=== PATIENT | male | born 1955 | race Hispanic/Latino ===

== ENCOUNTER 2024-04-05 18:04 | Emergency (ER) | payer SELFPAY ==
--- NOTE | 2024-04-05 19:41 | RAD REPORT ---
EXAMINATION: TWO VIEW CHEST XR CLINICAL INDICATION: Cough;SOB TECHNIQUE: 2 views of the chest was performed. COMPARISON: No prior exam. FINDINGS: Extensive fibrotic changes are present with reduced lung volumes. Superimposed bilateral interstitial lung opacities probably represent infection. The heart is normal in size. No displaced fractures evident.
[2024-04-05] MEDS ORDERED: ASPIRIN 81 MG CHEWABLE TABLET ONE (20:18)
[2024-04-05] MEDS ORDERED: LEVALBUTEROL 1.25 MG/3 ML NEB ONE (20:18)
[2024-04-05] MEDS ORDERED: NA CHLORIDE 0.9% 1,000 ML ONE (20:18)
[2024-04-05] MEDS ORDERED: IPRATROPIUM BROM 0.5MG/2.5ML ONE (20:18)
[2024-04-05 20:48] LABS: Absolute Basophils 0.1 K/uL (0-0.5); Absolute Eosinophils 0.2 K/uL (0-0.5); Absolute Lymphocytes (CBC) 1.5 K/uL (0.7-4.9); Absolute Monocytes 0.5 K/uL (0.1-1.3); Absolute Neutrophil 8.1 K/uL (1.8-8.0); Basophils % 0.5 % (0-1.3); Eosinophils % 2.2 % (0-4.4); Hematocrit 42.2 % (39.6-49.0); Hemoglobin 14.3 g/dL (13.6-17.9); Lymphocytes % 14.4 % (15.3-44.8); MCH 28.2 pg (27.0-35.0); MCHC 33.9 g/dL (32.0-36.0); MCV 83.3 fL (80-100); Monocytes % 4.4 % (3.3-12.3); Neutrophils % 78.5 % (41.7-73.7); Platelets 218 thou/uL (152-406); RBC Red Blood Cell Count 5.07 M/uL (4.33-5.43); Red Cell Distribution Width 14.3 % (12.1-15.2)
[2024-04-05 21:03] LABS: Albumin 3.6 g/dL (3.4-5.0); Albumin/Globulin Ratio 0.8 (1.1-1.8); Anion Gap 9.3 mEq/L (5.0-15.0); Bilirubin Direct 0.2 mg/dL (0-0.2); Bilirubin Indirect, Calculated 0.3 mg/dL (0.2-0.8); Bilirubin Total 0.5 mg/dL (0.2-1.0); Globulin 4.6 g/dL (2.3-3.5); Magnesium 1.8 mg/dL (1.6-2.4); Potassium 4.3 mEq/L (3.5-5.1); Protein, Total 8.2 g/dL (6.4-8.2); Troponin High Sensitivity 14.5 pg/mL (<58.9)
[2024-04-05 21:22] LABS: SARS-CoV-2 Antigen CONTROL BLUE LINE VIS/BG OK; SARS-CoV-2 Antigen Rapid Res Negative (Negative)
[2024-04-05] MEDS ORDERED: Levofloxacin 750mg IV 750 MG/150 ML BAG IV ONE (21:50)
--- NOTE | 2024-04-06 00:05 | RAD REPORT ---
EXAM: CT Angiography Chest With Intravenous Contrast CLINICAL HISTORY: The patient is 69 years old and is Male; Chest pain;SOB TECHNIQUE: Axial computed tomographic angiography images of the chest with intravenous contrast. Sagittal an d coronal reformatted images were created and reviewed. This CT exam was performed using one or more of the following dose reduction techniques: automated exposure control, adjustment of the mA a nd/or kV according to patient size, and/or use of iterative reconstruction technique. MIP reconstructed images were created and reviewed. COMPARISON: No relevant prior studies available. FINDINGS: PULMONARY ARTERIES: There are no obvious filling defects identified within the pulmonary arteries to suggest pulmonary embolism. AORTA: No acute findings. No thoracic aortic aneurysm. LUNGS: Extensive fibrotic change throughout the lungs with reticular opacities, course and septal thickening, bronchiectasis, and peripheral cyst. There is no lobar consolidation. The tracheobronchial tree is patent. PLEURAL SPACE: Unremarkable. No significant effusion. No pneumothorax. HEART: Unremarkable. No cardiomegaly. No significant pericardial effusion. No evidence of R V dysfunction. BONES/JOINTS: Multilevel degenerative changes spine is present. There is no acute fracture. No dislocation. SOFT TISSUES: Unremarkable. LYMPH NODES: Shotty mediastinal and hilar lymph nodes are present. IMPRESSION: 1. No evidence of pulmonary embolism. 2. Extensive chronic lung changes without superimposed consolidation. Electronically signed by: Brittny Nicole MD 04/05/2024 11:28 PM CDT RP Due to temporary technical issues with the [employer] reporting system, reports are being genia d by the in-house radiologist without review as a courtesy to ensure prompt reporting the interpreting radiologist is fully responsible for the content of the report. Transcribed Date/Time: 04/06/2024 12:04 AM
--- NOTE | 2024-04-06 00:21 | EDPHYS ---
Physician Documentation [facility] Name: Rafal Edmondson Age: 69 yrs Sex: Male : 1955 Arrival Date: 04/05/2024 Time: 18:04 Bed 2 Private MD: ED Physician Celio Massey HPI: 04/05 18:45 This 69 yrs old Male presents to ER via Ambulatory with complaints of Cough. cp 18:45 The patient has shortness of breath at rest. Associated signs and symptoms: Pertinent cp positives: chest pain, non-productive cough, Pertinent negatives: diaphoresis, fever, hemoptysis. 18:45 Onset: The symptoms/episode began/occurred yesterday, and became worse today. cp 18:45 Severity of symptoms: in the emergency department the symptoms are unchanged despite cp home interventions. Historical: - Allergies: 18:20 No Known Allergies; ph - PMHx: 18:20 Diabetes mellitus; Hypertensive disorder; ph - Immunization history:: Adult Immunizations not up to date. - Infectious Disease History:: Denies. - Social history:: Smoking status: Patient/guardian denies using tobacco. ROS: 18:50 Constitutional: Negative for body aches, fever, poor PO intake, cp 18:50 Eyes: Negative for injury, pain, redness, and discharge, cp 18:50 ENT: Negative for drainage from ear(s), ear pain, sore throat, difficulty swallowing, difficulty handling secretions, 18:50 Cardiovascular: Positive for chest pain, with cough, Negative for edema, palpitations, 18:50 Respiratory: Positive for cough, "sounds productive", shortness of breath, at rest. 18:50 Abdomen/GI: Negative for abdominal pain, vomiting, diarrhea, constipation, 18:50 Neuro: Negative for altered mental status, dizziness, headache, syncope, weakness, 18:50 All other systems are negative, Exam: 18:55 Constitutional: The patient appears in no acute distress, alert, awake, cp non-diaphoretic, non-toxic, well developed, well nourished, uncomfortable, 18:55 Head/Face: Normocephalic, atraumatic. cp 18:55 Eyes: Periorbital structures: appear normal, Conjunctiva: normal, no exudate, no injection, Sclera: no appreciated abnormality, Lids and lashes: appear normal, bilaterally, 18:55 ENT: External ear(s): are unremarkable, Nose: is normal, Mouth: Lips: moist, Oral mucosa: pink and intact, moist, Posterior pharynx: Airway: no evidence of obstruction, patent, 18:55 Chest/axilla: Inspection: normal, Palpation: is normal, no crepitus, no tenderness, 18:55 Cardiovascular: Rate: tachycardic, Rhythm: regular, Edema: is not appreciated, JVD: is not appreciated, 18:55 Respiratory: the patient does not display signs of respiratory distress, Respirations: labored breathing, that is mild, Breath sounds: decreased breath sounds, that are moderate, throughout, stridor, is not appreciated, + upper airway congestion. 18:55 Abdomen/GI: Inspection: abdomen appears normal, Palpation: abdomen is soft and non-tender, in all quadrants, 18:55 Back: pain, is absent, ROM is normal, 18:55 Neuro: Orientation: to person, place \\T\\ time. Mentation: is normal, Motor: moves all fours, strength is normal, 20:17 ECG was reviewed by the Attending Physician. cp Vital Signs: 18:18 BP 151 / 98; Pulse 105; Resp 26; Temp 97.7; Pulse Ox 86% on R/A; Weight 58.97 kg; ph Height 5 ft. 2 in. ; 18:30 BP 146 / 91; Pulse 91; Resp 29; Pulse Ox 99% on 2 lpm NC; br2 20:00 BP 130 / 75; Pulse 75; Resp 24; Pulse Ox 99% on 2 lpm NC; br2 21:00 BP 122 / 68; Pulse 75; Resp 26; Pulse Ox 100% on 2 lpm NC; br2 23:00 BP 136 / 79; Pulse 86; Resp 26; Pulse Ox 99% on 2 lpm NC; br2 1018 00:56 BP 138 / 79; Pulse 78; Resp 20 S; Pulse Ox 100% on 2 lpm NC; sa1 17 18:18 Body Mass Index 23.78 (58.97 kg, 157.48 cm) ph MDM: 04/05 18:22 Medical Screening Exam initiated cp 04/06 00:20 Data reviewed: vital signs, nurses notes, lab test result(s), EKG, radiologic studies, cp CT scan, plain films. 00:20 Consideration of Admission/Observation Escalation of care including cp admission/observation considered. I considered the following discharge prescriptions or medication management in the emergency department Medications were administered in the Emergency Department. See MAR. Independent interpretation of the following test(s) in the Emergency Department EKG: See my EKG interpretation above. Care significantly affected by the following chronic conditions: pulmonary fibrosis. Counseling: I had a detailed discussion with the patient and/or guardian regarding the historical points, exam findings, and any diagnostic results supporting the discharge/admit diagnosis, lab results, radiology results, to return to the emergency department if symptoms worsen or persist or if there are any questions or concerns that arise at home. Response to treatment: the patient's symptoms have markedly improved after treatment. ED course: VSS. Patient has home oxygen to use. Will discharge to home for continued monitoring. Chest pain appears non-cardiac. 04/05 18:22 Order name: Influenza Screen (a \\T\\ B); Complete Time: 21:41 04/05 18:22 Order name: SARS RAPID; Complete Time: 21:41 04/05 18:37 Order name: Basic Metabolic Panel; Complete Time: 21:41 04/05 21:41 Interpretation: Normal except: NA 133; GLUC 114; BUN 20; GFR 67. 04/05 18:37 Order name: CBC with Diff; Complete Time: 20:58 04/05 20:58 Interpretation: Normal except: SAVANAH% 78.5; LYM% 14.4; NEUT A 8.1. 04/05 18:37 Order name: LFT's; Complete Time: 21:41 04/05 21:42 Interpretation: Normal except: ALK 126; GLOB 4.6; A/G 0.8. 04/05 18:37 Order name: Magnesium; Complete Time: 21:41 cp 04/05 18:37 Order name: NT PRO-BNP; Complete Time: 21:41 04/05 22:17 Interpretation: Reviewed. 04/05 18:37 Order name: Troponin HS; Complete Time: 21:41 04/05 19:48 Order name: Lactate w/ 2H reflex if indic.; Complete Time: 21:41 04/05 19:48 Order name: Blood Culture Adult (2) cp 04/05 18:37 Order name: XRAY Chest Pa And Lat (2 Views); Complete Time: 19:47 cp 04/05 19:48 Interpretation: Report reviewed. 04/05 22:11 Order name: CT Chest For PE Angio cp 04/05 18:37 Order name: Cardiac monitoring; Complete Time: 20:14 cp 04/05 18:37 Order name: EKG - Nurse/Tech; Complete Time: 20:14 cp 04/05 18:37 Order name: IV Saline Lock; Complete Time: 20:14 04/05 18:37 Order name: Labs collected and sent; Complete Time: 21:08 cp 04/05 18:37 Order name: O2 Per Protocol; Complete Time: 21:08 cp 04/05 18:37 Order name: O2 Sat Monitoring; Complete Time: 21:08 EC/17 20:17 Rate is 91 beats/min. Rhythm is regular. MS interval is normal. QRS interval is normal. cp QT interval is normal. T waves are Inverted in leads III, aVR. Interpreted by me. Reviewed by me. Administered Medications: 20:23 Drug: Ipratropium Inhalation Aerosol 0.5 mg Inhalation once Route: Inhalation; br2 21:30 Follow up: Response: No adverse reaction br2 20:23 Drug: Levalbuterol Inhalation 1.25 mg Inhalation once Route: Inhalation; br2 21:00 Follow up: Response: No adverse reaction br2 20:24 Drug: Aspirin PO Chewable Tablet 324 mg PO once; 81 mg tablets x 4 Route: PO; br2 21:00 Follow up: Response: No adverse reaction br2 20:24 Drug: NS 0.9% IV 1000 ml IV at 1 bolus Per protocol; to be given as a bolus over 60 br2 minutes Route: IV; Rate: 1 bolus; Site: right antecubital; 22:00 Follow up: IV Status: Completed infusion; IV Intake: 1000ml kb3 04/06 00:44 Follow up: Response: No adverse reaction; IV Status: Completed infusion; IV Intake: br2 1000ml 04/05 21:59 Drug: levofloxacin IVPB 750 mg 150 ml IVPB once over 90 mins Volume: 150 ml; Route: br2 IVPB; Infused Over: 90 mins; Site: right antecubital; 23:00 Follow up: Response: No adverse reaction; IV Status: Infusion continued; IV Intake: br2 250ml 23:30 Follow up: Response: No adverse reaction; IV Status: Completed infusion; IV Intake: kb3 500ml 04/06 00:47 Drug: MethylPrednisoLONE IVP 80 mg IVP once Route: IVP; Site: right antecubital; kb3 01:18 Follow up: Response: No adverse reaction br2 Disposition: 09:02 Co-signature as Attending Physician, Celio Massey MD I reviewed the patient's care rt provided by the Advanced Practice Provider and agree with the diagnosis and treatment plan. Disposition Summary: 04/06/24 00:21 Discharge Ordered Notes: Location: Home cp Problem: new cp Symptoms: have improved cp Condition: Stable cp Diagnosis - Pulmonary fibrosis, unspecified cp - Acute upper respiratory infection, unspecified cp Followup: cp - With: Private Physician - When: 2 - 3 days - Reason: Recheck today's complaints Discharge Instructions: - Discharge Summary Sheet cp - Acute Bronchitis, Adult cp - Pulmonary Fibrosis cp Forms: - Medication Reconciliation Form cp - Antibiotic Education cp - Prescription Opioid Use cp - Patient Portal Instructions cp - Leadership Thank You Letter cp Prescriptions: - ipratropium-albuterol 0.5 mg-3 mg(2.5 mg base)/3 mL Inhalation Solution for Nebulization - nebulize 3 milliliter INHALATION route every 4 to 6 hours as needed for cp wheezing; 1 unit; Refills: 0, Product Selection Permitted - Prednisone 20 mg Oral Tablet - take 2 tablets ORAL route once daily for 5 days; 10 tablet; Refills: 0, Product cp Selection Permitted - levofloxacin 500 mg Oral tablet - take 1 tablet ORAL route once daily for 7 days; 7 tablet; Refills: 0, Product cp Selection Permitted Signatures: Dispatcher [employer] ED[facility] Cristina Ponce RN RN ph Allen Cantrell, TRELL PA cp Bisi Turner RN RN kb3 Celio Massey MD MD rt Kelsea Bedolla RN RN br2 Corrections: (The following items were deleted from the chart) 04/05 18:37 18:37 Chest Pa And Lat (2 Views)+RAD.RAD.BRZ ordered. EDMS EDMS 19:49 19:49 LACTATE+C.LAB.BRZ ordered. EDMS EDMS 19:49 19:49 BLOOD CULTURE*+BA.LAB.BRZ ordered. EDMS EDMS 21:41 18:45 Associated signs and symptoms: Pertinent positives: non-productive cough, cp cp 04/06 22:57 04/05 18:50 Cardiovascular: Negative for chest pain, edema, palpitations, cp cp
--- NOTE | 2024-04-06 00:21 | ER ---
Nurse's Notes [facility] Name: Rafal Edmondson Age: 69 yrs Sex: Male : 1955 Arrival Date: 04/05/2024 Time: 18:04 Bed 2 Private MD: Diagnosis: Pulmonary fibrosis, unspecified;Acute upper respiratory infection, unspecified Presentation: 04/05 18:18 Chief complaint: Patient's son or daughter states: C/O SOB, cough and chest pain. Spo2 ph in triage 89% RA. Coronavirus screen: Vaccine status: Patient reports receiving the 2nd dose of the covid vaccine. Ebola Screen: No symptoms or risks identified at this time. Initial Sepsis Screen: Does the patient meet any 2 criteria? No. Patient's initial sepsis screen is negative. Does the patient have a suspected source of infection? No. Patient's initial sepsis screen is negative. Risk Assessment: Do you want to hurt yourself or someone else? Patient reports desire/thoughts of hurting themselves or someone else. Provider notified. Onset of symptoms was April 05, 2024. 18:18 Method Of Arrival: Ambulatory ph 18:18 Acuity: SHITAL 2 ph 18:25 Note Pt placed on oxygen in triage, 3L NC, improved to 98%. ph Triage Assessment: 18:26 General: Appears in no apparent distress. uncomfortable, Behavior is calm. Pain: ph Complains of pain in chest. Respiratory: Airway is patent Respiratory effort is labored, Respiratory pattern is tachypnea. Historical: - Allergies: 18:20 No Known Allergies; ph - PMHx: 18:20 Diabetes mellitus; Hypertensive disorder; ph - Immunization history:: Adult Immunizations not up to date. - Infectious Disease History:: Denies. - Social history:: Smoking status: Patient/guardian denies using tobacco. Screenin:30 [facility] ED Fall Risk Assessment (Adult) History of falling in the last 3 months, br2 including since admission No falls in past 3 months (0 pts) Confusion or Disorientation No (0 pts) Intoxicated or Sedated No (0 pts) Impaired Gait No (0 pts) Mobility Assist Device Used No (0 pt) Altered Elimination No (0 pt) Score/Fall Risk Level 0 - 2 = Low Risk Oriented to surroundings. Abuse screen: Denies threats or abuse. Denies injuries from another. Nutritional screening: No deficits noted. Tuberculosis screening: No symptoms or risk factors identified. Assessment: 18:30 Reassessment: Patient and/or family updated on plan of care and expected duration. Pain br2 level reassessed. Patient is alert, oriented x 3, equal unlabored respirations, skin warm/dry/pink. General: Appears in no apparent distress. comfortable, Behavior is calm, cooperative. Pain: Complains of pain in xiphoid area and mid-sternal area Pain radiates to left subscapular area, right subscapular area and thoracic area. Neuro: Simon Agitation-Sedation Scale (RASS): 0 - Alert and Calm Level of Consciousness is awake, alert, obeys commands, Oriented to person, place, time, situation, Reports. Cardiovascular: Reports diaphoresis, shortness of breath, CHEST PAIN WITH COUGH Capillary refill < 3 seconds. Respiratory: Reports shortness of breath cough that is non-productive, dry, Breath sounds with wheezes bilaterally. in left posterior upper lobe and right posterior upper lobe. GI: No signs and/or symptoms were reported involving the gastrointestinal system. : No signs and/or symptoms were reported regarding the genitourinary system. EENT: No signs and/or symptoms were reported regarding the EENT system. Derm: No signs and/or symptoms reported regarding the dermatologic system. Musculoskeletal: No signs and/or symptoms reported regarding the musculoskeletal system. 20:00 Reassessment: No changes from previously documented assessment. Patient and/or family br2 updated on plan of care and expected duration. Pain level reassessed. Patient is alert, oriented x 3, equal unlabored respirations, skin warm/dry/pink. 23:00 Reassessment: Patient and/or family updated on plan of care and expected duration. Pain br2 level reassessed. Patient is alert, oriented x 3, equal unlabored respirations, skin warm/dry/pink. Patient states feeling better. Patient states symptoms have improved. 04/06 01:15 Reassessment: Patient and/or family updated on plan of care and expected duration. Pain br2 level reassessed. Patient is alert, oriented x 3, equal unlabored respirations, skin warm/dry/pink. Patient states feeling better. Patient states symptoms have improved. Vital Signs: 04/05 18:18 BP 151 / 98; Pulse 105; Resp 26; Temp 97.7; Pulse Ox 86% on R/A; Weight 58.97 kg; ph Height 5 ft. 2 in. ; 18:30 BP 146 / 91; Pulse 91; Resp 29; Pulse Ox 99% on 2 lpm NC; br2 20:00 BP 130 / 75; Pulse 75; Resp 24; Pulse Ox 99% on 2 lpm NC; br2 21:00 BP 122 / 68; Pulse 75; Resp 26; Pulse Ox 100% on 2 lpm NC; br2 23:00 BP 136 / 79; Pulse 86; Resp 26; Pulse Ox 99% on 2 lpm NC; br2 04/06 00:56 BP 138 / 79; Pulse 78; Resp 20 S; Pulse Ox 100% on 2 lpm NC; sa1 04/05 18:18 Body Mass Index 23.78 (58.97 kg, 157.48 cm) ph ED Course: 04/05 18:08 Patient arrived in ED. mg5 18:11 Allen Cantrell PA is PHCP. cp 18:11 Celio Massey MD is Attending Physician. cp 18:20 Triage completed. ph 18:21 Arm band placed on. ph 18:30 Patient has correct armband on for positive identification. Patient has correct armband br2 on for positive identification. Provided Education on: PLAN OF CARE. Door closed. Noise minimized. Warm blanket given. 18:30 Inserted saline lock: 20 gauge in left antecubital area, using aseptic technique. Blood br2 collected. Flushed with 10 mL NS. 19:28 XRAY Chest Pa And Lat (2 Views) In Process Unspecified. EDMS 20:14 Kelsea Bedolla, RN is Primary Nurse. br2 20:15 Basic Metabolic Panel Sent. br2 20:15 CBC with Diff Sent. br2 20:15 D-Dimer Sent. br2 20:15 LFT's Sent. br2 20:15 Magnesium Sent. br2 20:15 NT PRO-BNP Sent. br2 20:15 PT-INR Sent. br2 20:25 First set of blood cultures drawn by me. sa1 20:42 Second set of blood cultures drawn by me. sa1 21:08 SARS RAPID Sent. br2 21:08 Influenza Screen (a \T\ B) Sent. br2 22:57 CT Chest For PE Angio In Process Unspecified. EDMS 04/06 01:16 IV discontinued, intact, bleeding controlled, No redness/swelling at site. Pressure br2 dressing applied. 01:21 No provider procedures requiring assistance completed. br2 Administered Medications: 04/05 20:23 Drug: Ipratropium Inhalation Aerosol 0.5 mg Inhalation once Route: Inhalation; br2 21:30 Follow up: Response: No adverse reaction br2 20:23 Drug: Levalbuterol Inhalation 1.25 mg Inhalation once Route: Inhalation; br2 21:00 Follow up: Response: No adverse reaction br2 20:24 Drug: Aspirin PO Chewable Tablet 324 mg PO once; 81 mg tablets x 4 Route: PO; br2 21:00 Follow up: Response: No adverse reaction br2 20:24 Drug: NS 0.9% IV 1000 ml IV at 1 bolus Per protocol; to be given as a bolus over 60 br2 minutes Route: IV; Rate: 1 bolus; Site: right antecubital; 22:00 Follow up: IV Status: Completed infusion; IV Intake: 1000ml kb3 04/06 00:44 Follow up: Response: No adverse reaction; IV Status: Completed infusion; IV Intake: br2 1000ml 04/05 21:59 Drug: levofloxacin IVPB 750 mg 150 ml IVPB once over 90 mins Volume: 150 ml; Route: br2 IVPB; Infused Over: 90 mins; Site: right antecubital; 23:00 Follow up: Response: No adverse reaction; IV Status: Infusion continued; IV Intake: br2 250ml 23:30 Follow up: Response: No adverse reaction; IV Status: Completed infusion; IV Intake: kb3 500ml 04/06 00:47 Drug: MethylPrednisoLONE IVP 80 mg IVP once Route: IVP; Site: right antecubital; kb3 01:18 Follow up: Response: No adverse reaction br2 Medication: :22 VIS not applicable for this client. br2 Intake: 04/05 22:00 IV: 1000ml; Total: 1000ml. kb3 23:00 IV: 250ml; Total: 1250ml. br2 23:30 IV: 500ml; Total: 1750ml. kb3 04/06 00:44 IV: 1000ml; Total: 2750ml. br2 Outcome: 00:21 Discharge ordered by . cp 01:21 Discharged to home via wheelchair, br2 01:21 Condition: stable 01:21 Discharge instructions given to patient, family, Instructed on discharge instructions, medication usage, Demonstrated understanding of instructions, follow-up care, medications, Prescriptions given X 3, 01:22 Patient left the ED. br2 Signatures: Dispatcher [employer] Cristina Savage RN RN ph Allen Cantrell PA PA cp Bradberry, Kelly RN RN kb3 Daisy Oconnor mg5 Sultan Pierre sa1 Kelsea Bedolla RN RN br2 Corrections: (The following items were deleted from the chart) 04/05 19:08 18:18 BP 151 / 98; Pulse 105bpm; Resp 26bpm; Pulse Ox 89% RA; Temp 97.7F; 58.97 kg; ph Height 5 ft. 2 in.; BMI: 23.7; ph
[2024-04-06] MEDS ORDERED: METHYLPREDNISOLONE 40 MG INJ ONE (00:43)
[2024-04-06 02:43] VITALS: TEMP 97.7
[2024-04-06 03:18] VITALS: BP 138/79; O2SAT 100
--- NOTE | 2024-04-10 13:08 | EKG ---
Test Date: 2024-04-05 Test Time: 20:14:31 Warehouse Delivery Manager: MEASUREMENT RESULTS: Intervals: Rate: 91 IL: 146 QRSD: 92 QT: 358 QTc: 440 Phelps: P: 40 IL: 146 QRS: -10 T: 4 INTERPRETIVE STATEMENTS: Normal sinus rhythm Voltage criteria for left ventricular hypertrophy Abnormal ECG No previous ECG available for comparison Electronically Signed On 04-10-24 12:55:48 CDT by Shyam Steele
== END 2024-04-06 01:22 | disposition home or self-care (01) ==
LOC: ER 18:04 → EDBD 18:04 → ER 04-06 01:22
DX: J84.10 Pulmonary fibrosis, unspecified (principal); J06.9 Acute upper respiratory infection, unspecified; Z11.52 Encounter for screening for COVID-19; E11.9 Type 2 diabetes mellitus without complications; I10 Essential (primary) hypertension
CPT/HCPCS: 36415; 71046; 71275; 80048; 80076; 83605; 83735; 83880; 84484; 85025; 87040; 87804; 87811; 93005; 96361; 96365; 96375; 99285; J2919; J7030; J7614; J7644; Q9967

== ENCOUNTER → 2024-05-10 | Emergency (ER) | payer OTHER ==
[~2024-05-10] MED LIST: ASPIRIN 81 MG CHEWABLE TABLET ONE; IPRATROPIUM BROM 0.5MG/2.5ML ONE; LEVALBUTEROL 1.25 MG/3 ML NEB ONE; Levofloxacin500mg IV 500 MG/100 ML BAG IV ONE; METHYLPREDNISOLONE 125 MG INJ ONE; NA CHLORIDE 0.9% 1,000 ML ONE
--- NOTE | 2024-05-10 18:46 | RAD REPORT ---
EXAMINATION: TWO VIEW CHEST XR CLINICAL INDICATION: Fever;Cough TECHNIQUE: 2 views of the chest was performed. COMPARISON: 04/05/2024 FINDINGS: Extensive pulmonary fibrosis present. The heart is normal in size. No displaced fractures evident. IMPRESSION: Extensive pulmonary fibrosis, unchanged.
[2024-05-10 18:54] LABS: Absolute Eosinophils 0.2 K/uL (0-0.5); Absolute Lymphocytes (CBC) 1.8 K/uL (0.7-4.9); Absolute Monocytes 0.4 K/uL (0.1-1.3); Absolute Neutrophil 3.7 K/uL (1.8-8.0); Basophils % 0.6 % (0-1.3); Eosinophils % 3.3 % (0-4.4); Hematocrit 40.3 % (39.6-49.0); Hemoglobin 13.3 g/dL (13.6-17.9); Lymphocytes % 28.9 % (15.3-44.8); MCH 27.8 pg (27.0-35.0); MCHC 32.9 g/dL (32.0-36.0); MCV 84.5 fL (80-100); MPV 8.8 fL (7.6-11.3); Monocytes % 6.4 % (3.3-12.3); Neutrophils % 60.8 % (41.7-73.7); Platelets 225 thou/uL (152-406); RBC Red Blood Cell Count 4.77 M/uL (4.33-5.43); Red Cell Distribution Width 14.8 % (12.1-15.2)
[2024-05-10 19:06] LABS: PT Prothrombin Time 11.2 SECONDS (9.4-12.5)
[2024-05-10 19:17] LABS: ALT/SGPT 23 U/L (16-61); AST/SGOT 18 U/L (15-37); Albumin 3.1 g/dL (3.4-5.0); Albumin/Globulin Ratio 0.7 (1.1-1.8); Alkaline Phosphatase 127 U/L (45-117); BUN Blood Urea Nitrogen 16 mg/dL (7-18); Bicarbonate 26 mEq/L (21-32); Bilirubin Direct < 0.2 mg/dL (0-0.2); Bilirubin Indirect, Calculated 0.2 mg/dL (0.2-0.8); Bilirubin Total 0.4 mg/dL (0.2-1.0); Globulin 4.2 g/dL (2.3-3.5); Glomerular Filtration Rate 65 ml/min (=/>90); Glucose Level 193 mg/dL (74-106); Lipase 132 U/L (13-75); Magnesium 1.9 mg/dL (1.6-2.4); NT PRO-BNP 125 pg/mL (<125); Protein, Total 7.3 g/dL (6.4-8.2); Sodium Level 133 mEq/L (136-145); Troponin High Sensitivity 10.5 pg/mL (<58.9)
--- NOTE | 2024-05-10 19:31 | ER ---
Nurse's Notes [facility] Name: Rafal Edmondson Age: 69 yrs Sex: Male : 1955 Arrival Date: 05/10/2024 Time: 18:05 Bed 15 Private MD: Diagnosis: Chest pain on breathing;Pulmonary fibrosis, unspecified;Cough;Dyspnea Presentation: 05/10 18:23 Chief complaint: Patient states: chest pain, cough, congestion, SOB x3 days. tm6 Coronavirus screen: Client denies travel out of the [place] in the last 14 days. Ebola Screen: Patient negative for fever greater than or equal to 101.5 degrees Fahrenheit, and additional compatible Ebola Virus Disease symptoms Patient denies exposure to infectious person. Patient denies travel to an Ebola-affected area in the 21 days before illness onset. No symptoms or risks identified at this time. Initial Sepsis Screen: Does the patient meet any 2 criteria? No. Patient's initial sepsis screen is negative. Does the patient have a suspected source of infection? No. Patient's initial sepsis screen is negative. Risk Assessment: Do you want to hurt yourself or someone else? Patient reports no desire to harm self or others. Onset of symptoms was May 07, 2024. 18:23 Method Of Arrival: Ambulatory tm6 18:23 Acuity: SHITAL 3 tm6 Triage Assessment: 18:25 General: Appears distressed, uncomfortable, Behavior is cooperative. Pain: Complains of tm6 pain in chest Pain currently is 8 out of 10 on a pain scale. Pain began 2-3 days ago. EENT: No signs and/or symptoms were reported regarding the EENT system. Neuro: Level of Consciousness is awake, alert, obeys commands, Oriented to person, place, time, situation. Cardiovascular: Reports chest pain, shortness of breath, since x3 days. Respiratory: Reports shortness of breath cough that is Airway is patent Respiratory effort is labored, Respiratory pattern is regular. GI: No signs and/or symptoms were reported involving the gastrointestinal system. Abdomen is flat, non-distended. : No signs and/or symptoms were reported regarding the genitourinary system. Derm: No signs and/or symptoms reported regarding the dermatologic system. Musculoskeletal: No signs and/or symptoms reported regarding the musculoskeletal system. Historical: - Allergies: 18:25 No Known Allergies; tm6 - PMHx: 18:25 diabetes mellitus; Hypertensive disorder; pulmonary fibrosis; tm6 - PSHx: 18:25 None; tm6 - Immunization history:: Client reports having NOT received the Covid vaccine. - Infectious Disease History:: Denies. - Social history:: Smoking status: unknown. - Family history:: not pertinent. Screenin:37 [facility] ED Fall Risk Assessment (Adult) History of falling in the last 3 months, kc6 including since admission No falls in past 3 months (0 pts) Confusion or Disorientation No (0 pts) Intoxicated or Sedated No (0 pts) Impaired Gait No (0 pts) Mobility Assist Device Used No (0 pt) Altered Elimination No (0 pt) Score/Fall Risk Level 0 - 2 = Low Risk Oriented to surroundings, Maintained a safe environment. Abuse screen: Denies threats or abuse. Denies injuries from another. Nutritional screening: No deficits noted. Tuberculosis screening: No symptoms or risk factors identified. Assessment: 18:37 General: Appears in no apparent distress. comfortable, well groomed, well developed, kc6 Behavior is calm, cooperative, appropriate for age. Pain: Complains of pain in chest Pain does not radiate. Neuro: Level of Consciousness is awake, alert, obeys commands, Oriented to person, place, time, situation, Appropriate for age. Cardiovascular: Reports chest pain, shortness of breath, Heart tones S1 S2 present Capillary refill < 3 seconds Rhythm is sinus rhythm. Respiratory: Reports cough that is dry, hacking, persistent Airway is patent Trachea midline Respiratory effort is even, unlabored, Respiratory pattern is regular, symmetrical. GI: No signs and/or symptoms were reported involving the gastrointestinal system. : No signs and/or symptoms were reported regarding the genitourinary system. EENT: Reports nasal congestion. Derm: No signs and/or symptoms reported regarding the dermatologic system. Skin is intact, is healthy with good turgor, Skin is pink, warm \\T\\ dry. Musculoskeletal: No signs and/or symptoms reported regarding the musculoskeletal system. Circulation, motion, and sensation intact. Capillary refill < 3 seconds, Range of motion: intact in all extremities. 19:45 Reassessment: Patient and/or family updated on plan of care and expected duration. Pain dd2 level reassessed. Patient is alert, oriented x 3, equal unlabored respirations, skin warm/dry/pink. Pt continues to present with non-productive cough during reassessment. Pt denies SOB or distress at this time Patient denies pain at this time. 20:20 Reassessment: PROVIDED EDUCATION ON NEED TO STAY AND CONTINUE WITH THE PLAN OF CARE. ha1 EXPLAINED THE RISK FOR RESPIRATORY EXACERBATION. PATIENT STATES " I AM FEELING BETTER AND WANT TO GO HOME". Vital Signs: 18:23 BP 114 / 70; Pulse 89; Resp 19; Temp 98.5(O); Pulse Ox 93% on R/A; MAP 83 mmHg; Weight tm6 59.42 kg; Height 5 ft. 5 in. ; Pain 8/10; 19:30 BP 135 / 77; Pulse 68; Resp 17; Temp 98.3; Pulse Ox 100% ; dd2 20:15 BP 128 / 81; Pulse 78; Resp 18; Pulse Ox 97% ; dd2 18:23 Body Mass Index 21.80 (59.42 kg, 165.1 cm) tm6 18:23 Pain Scale: Adult tm6 ED Course: 18:07 Patient arrived in ED. mr 18:13 Tameka Rivera, MIGNON is Primary Nurse. kc6 18:20 Allen Ba MD is Attending Physician. ezra 18:23 EKG done, by ED staff, reviewed by Allen Ba MD. nh2 18:25 Triage completed. tm6 18:25 Arm band placed on right wrist. tm6 18:36 Inserted saline lock: 20 gauge in right wrist, using aseptic technique. Blood kc6 collected. Flushed with 10 mL NS. Patient maintains SpO2 saturation greater than 95% on room air. 18:36 Patient has correct armband on for positive identification. Placed in gown. Bed in low kc6 position. Call light in reach. Side rails up X2. Adult w/ patient. residential monitor on. Pulse ox on. NIBP on. Door closed. Noise minimized. Lights dimmed. Pillow given. 18:43 Chest Pa And Lat (2 Views) XRAY In Process Unspecified. EDMS 19:04 Report given to Dunia Estrada RN. kc6 19:05 First set of blood cultures drawn by ED staff. Initial Neb Treatment Given as ordered. dd2 19:30 Prince Camacho MD is Hospitalizing Provider. ezra 19:36 No provider procedures requiring assistance completed. dd2 19:40 Luis Zuniga MD is Hospitalizing Provider. erza Administered Medications: 18:52 Drug: NS 0.9% IV 1000 ml IV at 1000 ml once; to be given as a bolus over 60 minutes kc6 Route: IV; Rate: 1000 ml; Site: right wrist; 19:06 Follow up: Response: No adverse reaction dd2 18:52 Drug: Aspirin PO Chewable Tablet 81 mg PO once Route: PO; kc6 19:06 Follow up: Response: No adverse reaction dd2 19:33 Drug: MethylPrednisoLONE IVP 125 mg IVP once Route: IVP; Site: right forearm; dd2 19:48 Follow up: Response: No adverse reaction dd2 19:33 Drug: Levalbuterol Inhalation 3.75 mg Inhalation once Route: Inhalation; dd2 20:03 Follow up: Response: No adverse reaction dd2 19:33 Drug: Ipratropium Inhalation Aerosol 0.5 mg Inhalation once Route: Inhalation; dd2 20:03 Follow up: Response: No adverse reaction dd2 19:33 Drug: levofloxacin IVPB 500 mg 100 ml IVPB once over 60 mins Volume: 100 ml; Route: dd2 IVPB; Infused Over: 60 mins; Site: right forearm; 19:48 Follow up: Response: No adverse reaction dd2 20:33 Follow up: Response: No adverse reaction; IV Status: Completed infusion; IV Intake: dd2 100ml Medication: 22:09 VIS not applicable for this client. ha1 Intake: 20:33 IV: 100ml; Total: 100ml. dd2 Outcome: 19:31 Decision to Hospitalize by Provider. ezra 23:10 AMA AMA form signed ha1 23:10 Patient left the ED. ha1 Signatures: Dispatcher [employer] EDMS Allen Ba MD MD cha Rivera, Mary, Reg Reg mr Magaly Torres RN RN ha1 Tameka Rivera RN RN kc6 Francesco Boyd RN RN tm6 DUNIA ESTRADA RN RN dd2 [place] , [place] [id number]
--- NOTE | 2024-05-10 19:31 | EDPHYS ---
Physician Documentation [facility] Name: Rafal Edmondson Age: 69 yrs Sex: Male : 1955 Arrival Date: 05/10/2024 Time: 18:05 Bed 15 Private MD: ED Physician Allen Ba HPI: 05/10 18:51 This 69 yrs old Male presents to ER via Ambulatory with complaints of Chest ezra Pain, Cough, Congestion. 18:51 The patient or guardian reports chest pain that is located primarily in the anterior ezra chest wall, bilaterally. Onset: 3 day(s) ago. The pain does not radiate. Associated signs and symptoms: Pertinent positives: cough, shortness of breath. The chest pain is described as aching. Modifying factors: The symptoms are alleviated by remaining still, the symptoms are aggravated by activity, breathing, cough. Severity of pain: At its worst the pain was mild in the emergency department the pain is unchanged. The patient has experienced similar episodes in the past, multiple times. Historical: - Allergies: 18:25 No Known Allergies; tm6 - PMHx: 18:25 diabetes mellitus; Hypertensive disorder; pulmonary fibrosis; tm6 - PSHx: 18:25 None; tm6 - Immunization history:: Client reports having NOT received the Covid vaccine. - Infectious Disease History:: Denies. - Social history:: Smoking status: unknown. - Family history:: not pertinent. ROS: 18:51 Constitutional: Negative for fever, chills, and weight loss, Eyes: Negative for injury, ezra pain, redness, and discharge, ENT: Negative for injury, pain, and discharge, Neck: Negative for injury, pain, and swelling, Cardiovascular: Negative for chest pain, palpitations, and edema, Abdomen/GI: Negative for abdominal pain, nausea, vomiting, diarrhea, and constipation, Back: Negative for injury and pain, : Negative for injury, bleeding, discharge, and swelling, MS/Extremity: Negative for injury and deformity, Skin: Negative for injury, rash, and discoloration, Neuro: Negative for headache, weakness, numbness, tingling, and seizure, Psych: Negative for depression, anxiety, suicide ideation, homicidal ideation, and hallucinations, Allergy/Immunology: Negative for hives, rash, and allergies, Endocrine: Negative for neck swelling, polydipsia, polyuria, polyphagia, and marked weight changes, Hematologic/Lymphatic: Negative for swollen nodes, abnormal bleeding, and unusual bruising, 18:51 Respiratory: Positive for cough, "sounds productive", shortness of breath, at rest. wheezing, inspiratory, expiratory, Exam: 18:51 Constitutional: This is a well developed, well nourished patient who is awake, alert, ezra and in no acute distress. Head/Face: Normocephalic, atraumatic. Eyes: Pupils equal round and reactive to light, extra-ocular motions intact. Lids and lashes normal. Conjunctiva and sclera are non-icteric and not injected. Cornea within normal limits. Periorbital areas with no swelling, redness, or edema. ENT: Nares patent. No nasal discharge, no septal abnormalities noted. Tympanic membranes are normal and external auditory canals are clear. Oropharynx with no redness, swelling, or masses, exudates, or evidence of obstruction, uvula midline. Mucous membranes moist. Neck: Trachea midline, no thyromegaly or masses palpated, and no cervical lymphadenopathy. Supple, full range of motion without nuchal rigidity, or vertebral point tenderness. No Meningismus. Chest/axilla: Normal chest wall appearance and motion. Nontender with no deformity. No lesions are appreciated. Cardiovascular: Regular rate and rhythm with a normal S1 and S2. No gallops, murmurs, or rubs. Normal PMI, no JVD. No pulse deficits. Abdomen/GI: Soft, non-tender, with normal bowel sounds. No distension or tympany. No guarding or rebound. No evidence of tenderness throughout. Back: No spinal tenderness. No costovertebral tenderness. Full range of motion. Male : Normal genitalia with no discharge or lesions. Skin: Warm, dry with normal turgor. Normal color with no rashes, no lesions, and no evidence of cellulitis. MS/ Extremity: Pulses equal, no cyanosis. Neurovascular intact. Full, normal range of motion. Neuro: Awake and alert, GCS 15, oriented to person, place, time, and situation. Cranial nerves II-XII grossly intact. Motor strength 5/5 in all extremities. Sensory grossly intact. Cerebellar exam normal. Normal gait. Psych: Awake, alert, with orientation to person, place and time. Behavior, mood, and affect are within normal limits. 18:51 ECG was reviewed by the Attending Physician. Vital Signs: 18:23 BP 114 / 70; Pulse 89; Resp 19; Temp 98.5(O); Pulse Ox 93% on R/A; MAP 83 mmHg; Weight tm6 59.42 kg; Height 5 ft. 5 in. ; Pain 8/10; 19:30 BP 135 / 77; Pulse 68; Resp 17; Temp 98.3; Pulse Ox 100% ; dd2 20:15 BP 128 / 81; Pulse 78; Resp 18; Pulse Ox 97% ; dd2 18:23 Body Mass Index 21.80 (59.42 kg, 165.1 cm) tm6 18:23 Pain Scale: Adult tm6 MDM: 18:20 Medical Screening Exam initiated ezra 18:56 Differential diagnosis: abnormal EKG, acute myocardial infarction, acute pericarditis, ezra anxiety, coronary artery disease chest wall pain, cholecystitis, pericarditis, pneumonia, pulmonary embolus, unstable angina. HEART Score: History: Slightly Suspicious (0), ECG: Non specific repolarization disturbance / LBTB / PM (1), Age: > or = 65 years (2), Risk Factors: > or = 3 Risk factors for atherosclerotic disease (2), [Hypertension] [DM] [+ Family HX] Troponin: < or = 1 x Normal Limit (0). The patient was given aspirin in the Emergency Department. Data reviewed: vital signs, nurses notes, lab test result(s), EKG, radiologic studies, plain films. Consideration of Admission/Observation Patient was admitted/placed on observation. Escalation of care including admission/observation considered. I considered the following discharge prescriptions or medication management in the emergency department Medications were administered in the Emergency Department. See MAR. Independent interpretation of the following test(s) in the Emergency Department EKG: See my EKG interpretation above. Test considered but Not performed: Ultrasound NO 2 D ECHO. 05/10 18:22 Order name: Basic Metabolic Panel; Complete Time: 19:29 [facility] 05/10 18: Order name: CBC with Diff; Complete Time: 19:29 [facility] 05/10 18:22 Order name: LFT's; Complete Time: 19:29 [facility] 05/10 18:22 Order name: Magnesium; Complete Time: :29 [facility] 05/10 18: Order name: NT PRO-BNP; Complete Time: 19:29 [facility] 05/10 18:22 Order name: PT-INR; Complete Time: 19:29 [facility] 05/10 18:22 Order name: Troponin HS; Complete Time: 19:29 [facility] 05/10 18:22 Order name: Lipase; Complete Time: 19:29 [facility] 05/10 18:51 Order name: Blood Culture Adult (2) [facility] 05/10 19:09 Order name: Lactate w/ 2H reflex if indic. dd2 05/10 18:22 Order name: Chest Pa And Lat (2 Views) XRAY; Complete Time: 18:49 [facility] 05/10 18:22 Order name: Cardiac monitoring; Complete Time: 18:23 [facility] 05/10 18:22 Order name: EKG - Nurse/Tech; Complete Time: 18:23 [facility] 05/10 18:22 Order name: IV Saline Lock; Complete Time: 18:36 [facility] 05/10 18:22 Order name: Labs collected and sent; Complete Time: 18:36 [facility] 05/10 18: Order name: O2 Per Protocol; Complete Time: 18:27 [facility] 05/10 18:22 Order name: O2 Sat Monitoring; Complete Time: 18:27 [facility] EC:51 Rate is 98 beats/min. Rhythm is regular. QRS [place] is Normal. [place] interval is normal. QRS ezra interval is normal. QT interval is normal. No Q waves. T waves are Normal. No ST changes noted. Clinical impression: NSR w/ Non-specific ST/T Changes, LVH, and No evidence of ischemia. Interpreted by me. Reviewed by me. Administered Medications: 18:52 Drug: NS 0.9% IV 1000 ml IV at 1000 ml once; to be given as a bolus over 60 minutes kc6 Route: IV; Rate: 1000 ml; Site: right wrist; 19:06 Follow up: Response: No adverse reaction dd2 18:52 Drug: Aspirin PO Chewable Tablet 81 mg PO once Route: PO; kc6 19:06 Follow up: Response: No adverse reaction dd2 19:33 Drug: MethylPrednisoLONE IVP 125 mg IVP once Route: IVP; Site: right forearm; dd2 19:48 Follow up: Response: No adverse reaction dd2 19:33 Drug: Levalbuterol Inhalation 3.75 mg Inhalation once Route: Inhalation; dd2 20:03 Follow up: Response: No adverse reaction dd2 19:33 Drug: Ipratropium Inhalation Aerosol 0.5 mg Inhalation once Route: Inhalation; dd2 20:03 Follow up: Response: No adverse reaction dd2 19:33 Drug: levofloxacin IVPB 500 mg 100 ml IVPB once over 60 mins Volume: 100 ml; Route: dd2 IVPB; Infused Over: 60 mins; Site: right forearm; 19:48 Follow up: Response: No adverse reaction dd2 20:33 Follow up: Response: No adverse reaction; IV Status: Completed infusion; IV Intake: dd2 100ml Disposition Summary: 05/10/24 19:31 Hospitalization Ordered Notes: Hospitalization Status: Inpatient Admission ezra Location: Telemetry/MedSurg (Inpatient) ezra Condition: Fair ezra Problem: new ezra Symptoms: have improved ezra Bed/Room Type: Standard ezra Room Assignment: ezra Provider: Luis Zuniga(05/10/24 19:40) ezra Diagnosis - Chest pain on breathing ezra - Pulmonary fibrosis, unspecified ezra - Cough ezra - Dyspnea ezra Forms: - Medication Reconciliation Form ezra - SBAR form ezra - Leadership Thank You Letter ezra Signatures: Dispatcher [employer] EDMS Allen Ba MD MD cha Campbell, Kaitlyn, RN RN kc6 Francesco Boyd RN RN tm6 CHELO JACKSON RN RN dd2 Corrections: (The following items were deleted from the chart) 18:22 18:22 BASIC METABOLIC PANEL+C.LAB.BRZ ordered. EDMS EDMS 18:22 18:22 CBC+H.LAB.BRZ ordered. EDMS EDMS 18:22 18:22 HEPATIC FUNCTION+C.LAB.BRZ ordered. EDMS EDMS 18:22 18:22 MAGNESIUM+C.LAB.BRZ ordered. EDMS EDMS 18:22 18:22 PROBNP+C.LAB.BRZ ordered. EDMS EDMS 18:22 18:22 PROTIME (+INR)+COAG.LAB.BRZ ordered. EDMS EDMS 18:22 18:22 Troponin High Sensitivity+C.LAB.BRZ ordered. EDMS EDMS 18:22 18:22 LIPASE+C.LAB.BRZ ordered. EDMS EDMS 18:23 18:23 Chest Pa And Lat (2 Views)+RAD.RAD.BRZ ordered. EDMS EDMS 19:40 19:31 [place], Ray ezra ezra
[2024-05-11 03:19] VITALS: TEMP 98.3
[2024-05-11 03:20] VITALS: BP 128/81; O2SAT 97
--- NOTE | 2024-05-14 12:07 | EKG ---
Test Date: 2024-05-10 Test Time: 18:16:02 Unit Clerk: ROHAN MEASUREMENT RESULTS: Intervals: Rate: 98 MA: 150 QRSD: 78 QT: 366 QTc: 467 [place]: P: 49 MA: 150 QRS: -26 T: 30 INTERPRETIVE STATEMENTS: Normal sinus rhythm Minimal voltage criteria for LVH, may be normal variant Borderline ECG Compared to ECG 04/05/2024 20:14:31 No significant changes Electronically Signed On 05-14-24 12:03:00 ABALONE DIVER by Shyam Steele
== END ==
LOC: ER 18:05
DX: R07.1 Chest pain on breathing (principal); J84.10 Pulmonary fibrosis, unspecified; R05.9 Cough, unspecified; R06.00 Dyspnea, unspecified; I10 Essential (primary) hypertension; E11.9 Type 2 diabetes mellitus without complications
CPT/HCPCS: 96365; 87040 ×2; 85025; 80048; 36415; 83735; 85610; 80076; 83605; 84484; 83690; 83880; 71046; 94640; 96375; 99285; J7614; J7644; J2919; J7030; 93005